=== PATIENT | male | born 1965 | race American Indian/Alaskan Native ===

== ENCOUNTER 2021-10-27 10:25 | Emergency (ER) | payer MEDICAID ==
[2021-10-27 11:18] VITALS: BP 121/86
--- NOTE | 2021-10-27 12:39 | XRay Report ---
LEFT KNEE 3 VIEW(S) INDICATION / CLINICAL INFORMATION: pain and swelling COMPARISON: None available. FINDINGS: BONES / JOINT(S): No acute fracture or subluxation. There is mild degenerative change at the lateral tibiofemoral and patellofemoral compartments. SOFT TISSUES: Small joint effusion. ADDITIONAL FINDINGS: None. IMPRESSION: 1. No acute skeletal abnormality. 2. Joint effusion is present. Signer Name: Ovidio Valenzuela MD Signed: 10/27/2021 12:35 PM Workstation Name: [id number]
--- NOTE | 2021-10-27 13:21 | Emergency Department Report ---
ED Extremity Problem HPI - General Chief complaint: Extremity Problem,Nontraumatic Stated complaint: LEFT KNEE PAIN CANT WALK ON IT Time Seen by Provider: 10/27/21 11:48 Source: patient Mode of arrival: Ambulatory Limitations: No Limitations - History of Present Illness Initial comments: 56-year-old black male presents to the emergency department for evaluation of left knee pain. He states that he woke up a few days ago with pain and swelling to his left knee. He denies trauma or injury. He denies fever. MD Complaint: extremity pain, extremity swelling -: Gradual, days(s) (2-3) Location: left, knee History of Same: No -: No myalgia, No fever, No associated dyspnea, No associated chest pain Severity scale (0 -10): 6 Quality: aching Consistency: constant Worsens with: weight bearing, walking Associated Symptoms: denies: chest pain, shortness of breath, fever, myalgias, arthralgias, rash - Related Data Previous Rx's Medication Instructions Recorded Last Taken Type Naproxen [EC-Naprosyn] 500 mg PO BID #14 tab 10/27/21 Unknown Rx Prednisone [predniSONE 10 mg 10 mg PO .TAPER #1 pack 10/27/21 Unknown Rx (6-Day Pack, 21 Tabs)] Allergies Allergy/AdvReac Type Severity Reaction Status Date / Time No Known Allergies Allergy Verified 10/27/21 11:19 ED Review of Systems ROS: Stated complaint: LEFT KNEE PAIN CANT WALK ON IT Other details as noted in HPI Comment: All other systems reviewed and negative Constitutional: denies: fever Respiratory: denies: shortness of breath Cardiovascular: denies: chest pain, palpitations Gastrointestinal: denies: abdominal pain, nausea, vomiting Musculoskeletal: denies: back pain Neurological: denies: headache, weakness ED Past Medical Hx - Medications Home Medications: Home Medications Medication Instructions Recorded Confirmed Last Taken Type Naproxen [EC-Naprosyn] 500 mg PO BID #14 tab 10/27/21 Unknown Rx Prednisone [predniSONE 10 mg 10 mg PO .TAPER #1 pack 10/27/21 Unknown Rx (6-Day Pack, 21 Tabs)] ED Physical Exam - General Limitations: No Limitations General appearance: alert, in no apparent distress - Head Head exam: Present: atraumatic, normocephalic - Eye Eye exam: Present: normal appearance. Absent: conjunctival injection, periorbital swelling, periorbital tenderness - Neck Neck exam: Present: normal inspection. Absent: lymphadenopathy - Respiratory Respiratory exam: Absent: respiratory distress - Cardiovascular Cardiovascular Exam: Present: regular rate - GI/Abdominal GI/Abdominal exam: Absent: distended - Expanded Lower Extremity Exam Left Knee exam: Present: tenderness, swelling, effusion. Absent: normal inspection, full ROM, abrasion, laceration, ecchymosis, deformity, crepidus, dislocation, erythema Lower Leg exam: Present: normal inspection Ankle exam: Present: normal inspection Foot/Toe exam: Present: normal inspection Neuro vascular tendon exam: Present: no vascular compromise. Absent: pulse deficit, abnormal cap refill, motor deficit, sensory deficit, extremity cold to touch, pallor Gait: Positive: observed and limited by pain - Back Exam Back exam: Present: normal inspection - Neurological Exam Neurological exam: Present: alert, oriented X3 - Psychiatric Psychiatric exam: Present: normal affect, normal mood - Skin Skin exam: Present: warm, dry, intact, normal color ED Course Vital Signs 10/27/21 11:17 Temperature 98.2 F Pulse Rate 90 Respiratory 18 Rate Blood Pressure 121/86 [Right] O2 Sat by Pulse 97 Oximetry ED Medical Decision Making - Radiology Data Radiology results: report reviewed, image reviewed Left knee x-ray: FINDINGS: BONES / JOINT(S): No acute fracture or subluxation. There is mild degenerative change at the lateral tibiofemoral and patellofemoral compartments. SOFT TISSUES: Small joint effusion. ADDITIONAL FINDINGS: None. IMPRESSION: 1. No acute skeletal abnormality. 2. Joint effusion is present. - Medical Decision Making 56-year-old black male presents to the emergency department for evaluation of left knee pain. He states that he woke up a few days ago with pain and swelling to his left knee. He denies trauma or injury. He denies fever. Left knee x-ray positive for effusion and uric acid on the high side of normal. Patient will be treated with steroid Dosepak along with anti-inflammatories to take as directed. He is advised to follow-up with his primary care provider or orthopedics for further evaluation and management. He is advised to return to the emergency department as needed. Critical care attestation.: If time is entered above; I have spent that time in minutes in the direct care of this critically ill patient, excluding procedure time. ED Disposition Clinical Impression: Knee pain Qualifiers: Chronicity: acute Laterality: left Qualified Code(s): M25.562 - Pain in left knee Joint effusion Qualifiers: Effusion of joint location: knee Laterality: left Qualified Code(s): M25.462 - Effusion, left knee Disposition: HOME / SELF CARE / HOMELESS Is pt being admited?: No Does the pt Need Aspirin: No Condition: Stable Instructions: Knee Effusion, [id number], Musculoskeletal Pain, Acute Knee Pain, Adult, [id number] Additional Instructions: Take medications as prescribed. Follow-up with your primary care provider or orthopedics for further evaluation and management. Return to the emergency department as needed. Prescriptions: Naproxen [EC-Naprosyn] 500 mg PO BID #14 tab Prednisone [predniSONE 10 mg (6-Day Pack, 21 Tabs)] 10 mg PO .TAPER #1 pack Referrals: JOSESITO BROWN MD [Primary Care Provider] - 3-5 Days JT TAN MD [Staff Physician] - 3-5 Days Forms: Work/School Release Form(ED) Time of Disposition: 13:20
== END 2021-10-27 13:30 | disposition home or self-care (01) ==
LOC: ED 10:25
DX: M25.462 Effusion, left knee (principal)
CPT/HCPCS: 36415; 84550; 99283